=== PATIENT | female | born 1990 | race American Indian/Alaskan Native ===

== ENCOUNTER 2018-08-23 09:02 | Emergency (ER) | payer SELFPAY ==
[2018-08-23 09:22] VITALS: BP 109/69; PULSE 66; RESP 18; TEMP 98.7; O2SAT 100
--- NOTE | 2018-08-23 09:53 | C.PDOC ---
History Of Present Illness 28-year-old female presents to the ED for evaluation of nausea and vomiting which began two days ago. Patient states she had two episodes of vomiting two days ago. She felt slightly nauseous yesterday, but did not have any episodes of vomiting. Patient wishes to return to work, but cannot do so until she has a medical note. Patient is unsure if she is and does not offer any complaints at this time. She denies fever, chills, abdominal pain. Time Seen by Provider: 08/23/18 09:14 Chief Complaint (Nursing): GI Problem History Per: Patient History/Exam Limitations: no limitations Onset/Duration Of Symptoms: Days (2) Current Symptoms Are (Timing): Still Present Quality Of Discomfort: denies: "Pain" Associated Symptoms: Nausea, Vomiting. denies: Fever, Chills Additional History Per: Patient Abnormal Vaginal Bleeding: No Past Medical History Reviewed: Historical Data, Nursing Documentation, Vital Signs Vital Signs: Last Vital Signs Temp 98.7 F 08/23/18 09:13 Pulse 66 08/23/18 09:13 Resp 18 08/23/18 09:13 BP 109/69 08/23/18 09:13 Pulse Ox 100 08/23/18 09:13 Primary Care Provider: FAMILY PROVIDER,NO - Medical History PMH: No Chronic Diseases Surgical History: No Surg Hx Family History: States: Unknown Family Hx - Social History Hx Alcohol Use: Yes Hx Substance Use: No Review Of Systems Constitutional: Negative for: Fever, Chills Gastrointestinal: Positive for: Nausea, Vomiting. Negative for: Abdominal Pain Physical Exam - Physical Exam Appears: Non-toxic, No Acute Distress Skin: Normal Color, Warm, Dry Head: Atraumatic, Normacephalic Oral Mucosa: Moist Neck: Supple Chest: Symmetrical, No Deformity, No Tenderness Cardiovascular: Rhythm Regular, No Murmur Respiratory: Normal Breath Sounds, No Rales, No Rhonchi, No Wheezing Gastrointestinal/Abdominal: Soft, No Tenderness, No Guarding, No Rebound Extremity: Normal ROM, Capillary Refill (less than 2 seconds ) Neurological/Psych: Oriented x3, Normal Speech, Normal Cognition ED Course And Treatment O2 Sat by Pulse Oximetry: 100 (on RA) Pulse Ox Interpretation: Normal Progress Note: test ordered, resulted negative. On reassessment, patient is resting comfortably, showing no signs of distress and is stable for discharge. Patient is advised to follow up with her PMD within 1-2 days for further evalaution. Advised to return to the ED if symptoms persist or worsen. Disposition - Disposition Disposition: HOME/ ROUTINE Disposition Time: 09:52 Condition: STABLE Additional Instructions: Follow up with PMD within 1-2 days. Return to ED if feel worse. Instructions: Nausea and Vomiting, Adult (DC) Forms: [employer] (Kinyarwanda), Work Excuse - Clinical Impression Clinical Impression: Vomiting - PA / [employer] / Resident Statement MD/DO has reviewed & agrees with the documentation as recorded. - Scribe Statement The provider has reviewed the documentation as recorded by the Scribe (Sussy Chapa) All medical record entries made by the Scribe were at my direction and personally dictated by me. I have reviewed the chart and agree that the record accurately reflects my personal performance of the history, physical exam, medical decision making, and the department course for this patient. I have also personally directed, reviewed, and agree with the discharge instructions and disposition.
== END 2018-08-23 10:05 | disposition home or self-care (01) ==
LOC: C.ER 09:02
DX: R11.2 Nausea with vomiting, unspecified (principal)